=== PATIENT | male | born 1980 | race Caucasian/White ===

== ENCOUNTER 2018-08-16 16:24 | Emergency (ER) | payer SELFPAY ==
[2018-08-16] MEDS ORDERED: KETOROLAC TROMETHAMINE 60 MG/2 ML SDV IM ONE (16:45)
[2018-08-16] MEDS ORDERED: ONDANSETRON 4 MG TAB.RAPDIS PO ONE (16:45)
--- NOTE | 2018-08-16 16:46 | ER Document Report ---
ED Medical Screen (RME) - General Chief Complaint: Abdominal Pain Stated Complaint: RIGHT SIDE PAIN Time Seen by Provider: 08/16/18 16:42 Notes: 38-year-old male patient 2-day history of right upper quadrant abdominal pain made worse after eating. I have greeted and performed a rapid initial assessment of this patient. A comprehensive ED assessment and evaluation of the patient, analysis of test results and completion of the medical decision making process will be conducted by additional ED providers. TRAVEL OUTSIDE OF THE [place] IN LAST 30 DAYS: No - Related Data Allergies/Adverse Reactions: No Known Allergies Allergy (Verified 08/16/18 16:40) Past Medical History - Social History Chew tobacco use (# tins/day): No Frequency of alcohol use: None Drug Abuse: Marijuana Renal/ Medical History: Denies: Hx Peritoneal Dialysis Psychiatric Medical History: Reports: Hx Attention Deficit Hyperactivity Disorder Past Surgical History: Reports: Hx Tonsillectomy - adnoidectomy - Immunizations Hx Diphtheria, Pertussis, Tetanus Vaccination: Yes Physical Exam - Vital signs Vitals: Temp Pulse Resp BP Pulse Ox 97.7 F 91 16 143/82 H 97 08/16/18 16:28 08/16/18 16:28 08/16/18 16:28 08/16/18 16:28 08/16/18 16:28 Course - Vital Signs Vital signs: Temp Pulse Resp BP Pulse Ox 97.7 F 91 16 143/82 H 97 08/16/18 16:28 08/16/18 16:28 08/16/18 16:28 08/16/18 16:28 08/16/18 16:28
[2018-08-16 17:15] LABS: ABSOLUTE EOSINOPHILS # (AUTO) 0.1 10^3/uL (0.0-0.6); ABSOLUTE LYMPHOCYTES (AUTO) 1.1 10^3/uL (0.5-4.7); ABSOLUTE MONOCYTES (AUTO) 0.8 10^3/uL (0.1-1.4); ABSOLUTE NEUT (AUTO) 8.9 10^3/uL (1.7-8.2); BASOPHILS % (AUTO) 0.2 % (0-2); EOSINOPHILS % (AUTO) 0.9 % (0-6); HEMOGLOBIN 15.5 g/dL (13.5-17.0); LYMPHOCYTES % (AUTO) 9.7 % (13-45); MEAN CORPUSCULAR HEMOGLOBIN 30.1 pg (27.0-33.4); MEAN CORPUSCULAR HGB CONC 35.3 g/dL (32.0-36.0); MEAN CORPUSCULAR VOLUME 85 fl (80-97); MONOCYTES % (AUTO) 7.2 % (3-13); PLATELET COUNT 241 10^3/uL (150-450); RED BLOOD COUNT 5.16 10^6/uL (4.35-5.55); RED CELL DISTRIBUTION WIDTH 13.9 % (11.5-14.0); TOTAL CELLS COUNTED % (AUTO) 100 %; WHITE BLOOD COUNT 10.8 10^3/uL (4.0-10.5)
[2018-08-16 17:28] LABS: ALANINE AMINOTRANSFERASE 39 U/L (21-72); ALBUMIN 4.7 g/dL (3.5-5.0); ALKALINE PHOSPHATASE 76 U/L (38-126); ANION GAP 11 (5-19); ASPARTATE AMINO TRANSFERASE 26 U/L (17-59); BILIRUBIN,DIRECT 0.1 mg/dL (0.0-0.4); BILIRUBIN,TOTAL 0.5 mg/dL (0.2-1.3); BLOOD UREA NITROGEN 9 mg/dL (7-20); CALCIUM 10.2 mg/dL (8.4-10.2); CARBON DIOXIDE 27 mmol/L (22-30); CHLORIDE 102 mmol/L (98-107); GLUCOSE 117 mg/dL (75-110); LIPASE 85.8 U/L (23-300); POTASSIUM 3.6 mmol/L (3.6-5.0); SODIUM 140.1 mmol/L (137-145); TOTAL PROTEIN 7.2 g/dL (6.3-8.2)
[2018-08-16 17:30] LABS: APPEARANCE,URINE SLIGHTLY-CLOUDY; BILIRUBIN,URINE SMALL (NEGATIVE); COLOR,URINE AMBER; GLUCOSE, URINE NEGATIVE (NEGATIVE); KETONES,URINE TRACE mg/dL (NEGATIVE); LEUKOCYTE ESTERASE,URINE NEGATIVE (NEGATIVE); NITRITE,URINE NEGATIVE (NEGATIVE); PROTEIN,URINE 100 mg/dL (NEGATIVE); URINE SPECIFIC GRAVITY 1.046
--- NOTE | 2018-08-16 17:46 | RADIOLOGY REPORT (SQ) ---
EXAM DESCRIPTION: U/S ABDOMEN LIMITED W/O DOP COMPLETED DATE/TIME: 08/16/2018 5:27 pm REASON FOR STUDY: Postprandial RUQ abdominal pain w/ N V COMPARISON: None. TECHNIQUE: Dynamic and static grayscale images acquired of the abdomen and recorded on PACS. Additio nal selected color Doppler and spectral images recorded. LIMITATIONS: None. FINDINGS: PANCREAS: No masses. Visualized pancreatic duct normal caliber. LIVER: No masses. Echotexture normal. LIVER VASCULATURE: Normal directional flow of the main portal vein. GALLBLADDER: No stones. Normal wall thickness. No pericholecystic fluid. ULTRASOUND-DETECTED THEODORE'S SIGN: Negative. INTRAHEPATIC DUCTS AND COMMON DUCT: CBD and intrahepatic ducts normal caliber. No filling defects. INFERIOR VENA CAVA: Obscured AORTA: No aneurysm. RIGHT KIDNEY: Normal size. Normal echogenicity. No solid or suspicious masses. No hydronephrosis. No calcifications. PERITONEAL AND RIGHT PLEURAL SPACE: No ascites or effusions. OTHER: No other significant findings. IMPRESSION: NORMAL RIGHT UPPER QUADRANT ULTRASOUND. TECHNICAL DOCUMENTATION: JOB ID: [id number] [employer]- All Rights Reserved Reading location - IP/workstation name: [email or web address] [email or web address]
[2018-08-16] MEDS ORDERED: HYDROCODONE/ACETAMINOPHEN 5-325 MG TABLET PO ONE (17:55)
[2018-08-16] MEDS ORDERED: NORMAL SALINE 1000 ML 1,000 ML IV ONE (17:55)
[2018-08-16] MEDS ORDERED: ONDANSETRON HCL INJ/PF 4 MG/2 ML SDV IV ONE (17:55)
--- NOTE | 2018-08-16 18:31 | ER Document Report ---
ED General - General Mode of Arrival: Ambulatory Information source: Patient TRAVEL OUTSIDE OF THE [place] IN LAST 30 DAYS: No <LUZ WOLF - Last Filed: 08/16/18 23:05> <GERI JONES - Last Filed: 08/17/18 00:52> - General Chief Complaint: Abdominal Pain Stated Complaint: RIGHT SIDE PAIN Time Seen by Provider: 08/16/18 16:42 Notes: Patient is a 38 year old male presenting to the emergency department complaining of right upper quadrant abdominal pain and vomiting onset 3-4 days ago. Patient describes the pain as "terrible" and states he had similar symptoms 1 year ago but did not receive a work up. He states the pain is exacerbated by food further stating he ate a sandwich around 1400 today which exacerbated his pain. Patient also complains of some diaphoresis. He denies any hematemesis. (LUZ WOLF) - Related Data Allergies/Adverse Reactions: No Known Allergies Allergy (Verified 08/16/18 16:40) Past Medical History - General Information source: Patient - Social History Smoking Status: Current Every Day Smoker Chew tobacco use (# tins/day): No Frequency of alcohol use: None Drug Abuse: Marijuana Family History: CAD Patient has suicidal ideation: No Patient has homicidal ideation: No Psychiatric Medical History: Reports: Hx Attention Deficit Hyperactivity Disorder Past Surgical History: Reports: Hx Tonsillectomy - adnoidectomy - Immunizations Hx Diphtheria, Pertussis, Tetanus Vaccination: Yes <LUZ WOLF - Last Filed: 08/16/18 23:05> Review of Systems - Review of Systems Constitutional: No symptoms reported EENT: No symptoms reported Cardiovascular: No symptoms reported Respiratory: No symptoms reported Gastrointestinal: See HPI, Abdominal pain, Vomiting Genitourinary: No symptoms reported Male Genitourinary: No symptoms reported Musculoskeletal: No symptoms reported Skin: No symptoms reported Hematologic/Lymphatic: No symptoms reported Neurological/Psychological: No symptoms reported -: Yes All other systems reviewed and negative <LUZ WOLF - Last Filed: 08/16/18 23:05> Physical Exam <LUZ WOLF - Last Filed: 08/16/18 23:05> - Vital signs Vitals: Temp Pulse Resp BP Pulse Ox 97.7 F 91 16 143/82 H 97 08/16/18 16:28 08/16/18 16:28 08/16/18 16:28 08/16/18 16:28 08/16/18 16:28 - Notes Notes: GENERAL: Alert, interacts well. No acute distress. HEAD: Normocephalic, atraumatic. EYES: Pupils equal, round, and reactive to light. Extraocular movements intact. ENT: Oral mucosa moist, tongue midline. NECK: Full range of motion. Supple. Trachea midline. LUNGS: Clear to auscultation bilaterally, no wheezes, rales, or rhonchi. No respiratory distress. HEART: Regular rate and rhythm. No murmurs, gallops, or rubs. ABDOMEN: Soft, epigastric tenderness to palpation worse in the RUQ, positive Hill's sign. Non-distended. Bowel sounds present in all 4 quadrants. EXTREMITIES: Moves all 4 extremities spontaneously. NEUROLOGICAL: Alert and oriented x3. Normal speech. PSYCH: Normal affect, normal mood. SKIN: Warm, dry, normal turgor. No rashes or lesions noted. (LUZ WOLF) Course - Laboratory Result Diagrams: 08/16/18 16:55 08/16/18 16:55 <LUZ WOLF - Last Filed: 08/16/18 23:05> - Laboratory Result Diagrams: 08/16/18 16:55 08/16/18 16:55 <GERI JONES - Last Filed: 08/17/18 00:52> - Re-evaluation Re-evalutation: 08/16/18 20:41 CBC shows mild leukocytosis of 10.8, otherwise unremarkable, CMP grossly unremarkable, lipase normal, urinalysis shows trace ketones, no signs of in fection, no signs of blood. Abdominal ultrasound shows normal right upper quadrant ultrasound. Symptoms are highly suggestive of biliary colic and I suspect he has biliary dyskinesia. No indication for emergent cholecystectomy this evening, I did discuss the patient with Dr. Martin, the general surgeon on- call. He states that the patient may call their office Saturday morning to a range of follow-up appointment for outpatient cholecystectomy. Patient here was given antiemetics, pain medication, able to tolerate water and crackers without difficulty. Able to be discharged to home. Counseled extensively on gallbladder diet. (GERI JONES) - Vital Signs Vital signs: Temp Pulse Resp BP Pulse Ox 98.3 F 80 20 131/68 H 99 08/16/18 20:44 08/16/18 20:44 08/16/18 20:44 08/16/18 20:44 08/16/18 20:44 - Laboratory Laboratory results interpreted by me: 08/16/18 08/16/18 08/16/18 16:55 16:55 16:55 WBC 10.8 H Seg Neutrophils % 82.0 H Lymphocytes % 9.7 L Absolute Neutrophils 8.9 H Glucose 117 H Urine Protein 100 H Urine Ketones TRACE H Urine Bilirubin SMALL H Urine Urobilinogen 2.0 H Discharge <LUZ WOLF - Last Filed: 08/16/18 23:05> <GERI JONES - Last Filed: 08/17/18 00:52> - Discharge Clinical Impression: Biliary colic Condition: Stable Disposition: HOME, SELF-CARE Instructions: Gallbladder Disease ([facility]), Low-Fat Diet ([facility]) Additional Instructions: Please follow a low-fat diet. Please call Dr. Martin's office Saturday morning to arrange a follow-up appointment within the next 1-2 weeks for your chronic bi liary colic. Return to the emergency department for uncontrollable vomiting, uncontrollable pain, fevers or any new or concerning symptoms. Prescriptions: Hydrocodone/Acetaminophen [Hubert 5-325 mg Tablet] 1 tab PO Q6HP PRN #7 tablet PRN Reason: Ondansetron [Zofran Odt 4 mg Tablet] 1 - 2 tab PO Q4H PRN #15 tab.rapdis PRN Reason: For Nausea/Vomiting Promethazine HCl [Phenergan 25 mg Tablet] 1 - 2 tab PO Q6H PRN #15 tablet PRN Reason: Referrals: CHELE MARTIN MD [ACTIVE STAFF] - Follow up in 3-5 days Scribe Attestation: 08/17/18 00:52 I personally performed the services described in the documentation, reviewed and edited the documentation which was dictated to the scribe in my presence, and it accurately records my words and actions. (GERI JONES) Scribe Documentation - Scribe Written by Scribe:: Harrison Carlson, 08/16/2018 18:55 acting as scribe for :: Shawn <LUZ WOLF - Last Filed: 08/16/18 23:05>
[2018-08-16 20:46] VITALS: BP 131/68
== END 2018-08-16 20:59 | disposition home or self-care (01) ==
LOC: ER 16:24
DX: K83.8 Other specified diseases of biliary tract (principal); R10.11 Right upper quadrant pain; F17.200 Nicotine dependence, unspecified, uncomplicated
CPT/HCPCS: 99284; 96372; 96374; 36415; 83690; 85025; 80053; 81001; 76705; J1885; S0119; J2405; J7030

== ENCOUNTER 2018-08-18 18:07 | Observation (INO) | payer SELFPAY ==
[2018-08-18] MEDS ORDERED: KETOROLAC TROMETHAMINE INJ/PF 30 MG/1 ML SDV IV ONE (19:05)
--- NOTE | 2018-08-18 19:06 | ER Document Report ---
ED Medical Screen (RME) - General Chief Complaint: Abdominal Pain Stated Complaint: ABDOMINAL PAIN Time Seen by Provider: 08/18/18 18:48 Notes: Patient with severe right upper quadrant and epigastric abdominal pain made worse with anything he tries to eat. He was seen here 2 days ago for the same, had negative laboratory evaluation and a negative gallbladder ultrasound, was diagnosed with biliary colic. He has not been able to get timely follow-up with [facility]. He states the pain never goes away, and is preventing sleep. He states he cannot eat anything, even a few crackers provokes his discomfort. I have greeted and performed a rapid initial assessment of this patient. A comprehensive ED assessment and evaluation of the patient, analysis of test results and completion of the medical decision making process will be conducted by additional ED providers. TRAVEL OUTSIDE OF THE [place] IN LAST 30 DAYS: No - Related Data Allergies/Adverse Reactions: No Known Allergies Allergy (Verified 08/16/18 16:40) Past Medical History - Social History Chew tobacco use (# tins/day): No Frequency of alcohol use: None Drug Abuse: Marijuana Renal/ Medical History: Denies: Hx Peritoneal Dialysis Psychiatric Medical History: Reports: Hx Attention Deficit Hyperactivity Disorder Past Surgical History: Reports: Hx Tonsillectomy - adnoidectomy - Immunizations Hx Diphtheria, Pertussis, Tetanus Vaccination: Yes
[2018-08-18 19:47] LABS: ABSOLUTE BASOPHILS # (AUTO) 0.1 10^3/uL (0.0-0.2); ABSOLUTE EOSINOPHILS # (AUTO) 0.3 10^3/uL (0.0-0.6); ABSOLUTE LYMPHOCYTES (AUTO) 1.6 10^3/uL (0.5-4.7); ABSOLUTE MONOCYTES (AUTO) 0.7 10^3/uL (0.1-1.4); ABSOLUTE NEUT (AUTO) 4.4 10^3/uL (1.7-8.2); BASOPHILS % (AUTO) 0.9 % (0-2); HEMOGLOBIN 14.5 g/dL (13.5-17.0); LYMPHOCYTES % (AUTO) 22.5 % (13-45); MEAN CORPUSCULAR HEMOGLOBIN 29.5 pg (27.0-33.4); MEAN CORPUSCULAR HGB CONC 34.4 g/dL (32.0-36.0); MEAN CORPUSCULAR VOLUME 86 fl (80-97); MONOCYTES % (AUTO) 9.6 % (3-13); PLATELET COUNT 236 10^3/uL (150-450); RED CELL DISTRIBUTION WIDTH 13.8 % (11.5-14.0); TOTAL CELLS COUNTED % (AUTO) 100 %
[2018-08-18 20:01] LABS: ALANINE AMINOTRANSFERASE 36 U/L (21-72); ALBUMIN 4.5 g/dL (3.5-5.0); ALKALINE PHOSPHATASE 74 U/L (38-126); ANION GAP 9 (5-19); ASPARTATE AMINO TRANSFERASE 23 U/L (17-59); BILIRUBIN,DIRECT 0.3 mg/dL (0.0-0.4); BILIRUBIN,TOTAL 0.7 mg/dL (0.2-1.3); BLOOD UREA NITROGEN 12 mg/dL (7-20); CALCIUM 9.8 mg/dL (8.4-10.2); CARBON DIOXIDE 30 mmol/L (22-30); CHLORIDE 100 mmol/L (98-107); GLUCOSE 105 mg/dL (75-110); LIPASE 150.3 U/L (23-300); POTASSIUM 3.7 mmol/L (3.6-5.0); SODIUM 138.8 mmol/L (137-145); TOTAL PROTEIN 7.2 g/dL (6.3-8.2)
--- NOTE | 2018-08-18 21:46 | ER Document Report ---
ED General - General Chief Complaint: Abdominal Pain Stated Complaint: ABDOMINAL PAIN Time Seen by Provider: 08/18/18 18:48 Notes: Patient is a 38-year-old male without chronic medical problems who presents with 3 days of continuous pain to the right upper abdomen. The patient describes the pain as being a severe, constant, throbbing pain to the right upper side of his abdomen with associated nausea and vomiting. States that initially the pain was intermittent similar to when he was seen several days ago in the emergency department but has since become constant and intolerable. He notes that eating or drinking does not seem to have a major impact but he has avoided food secondary to the pain. Nothing improves the pain. Denies any history of similar pains prior to the past week. He has not had any fever or constitutional symptoms. No prior history of abdominal surgeries. TRAVEL OUTSIDE OF THE [place] IN LAST 30 DAYS: No - Related Data Allergies/Adverse Reactions: No Known Allergies Allergy (Verified 08/18/18 22:29) Past Medical History - General Information source: Patient - Social History Smoking Status: Current Every Day Smoker Chew tobacco use (# tins/day): No Frequency of alcohol use: None Drug Abuse: Marijuana Lives with: Family Family History: CAD Patient has suicidal ideation: No Patient has homicidal ideation: No Renal/ Medical History: Denies: Hx Peritoneal Dialysis Psychiatric Medical History: Reports: Hx Attention Deficit Hyperactivity Disorder Past Surgical History: Reports: Hx Tonsillectomy - adnoidectomy - Immunizations Hx Diphtheria, Pertussis, Tetanus Vaccination: Yes Review of Systems - Review of Systems Notes: Constitutional: Negative for fever. HENT: Negative for sore throat. Eyes: Negative for visual changes. Cardiovascular: Negative for chest pain. Respiratory: Negative for shortness of breath. Gastrointestinal: Positive for abdominal pain and vomiting Genitourinary: Negative for dysuria. Musculoskeletal: Negative for back pain. Skin: Negative for rash. Neurological: Negative for headaches, weakness or numbness. 10 point ROS negative except as marked above and in HPI. Physical Exam - Vital signs Vitals: Temp Pulse Resp BP Pulse Ox 98.4 F 73 16 122/63 99 08/18/18 18:35 08/18/18 18:35 08/18/18 18:35 08/18/18 18:35 08/18/18 18:35 Interpretation: Normal Notes: PHYSICAL EXAMINATION: GENERAL: Appears moderately uncomfortable but in no acute distress HEAD: Atraumatic, normocephalic. EYES: Pupils equal round and reactive to light, extraocular movements intact, sclera anicteric, conjunctiva are normal. ENT: nares patent, oropharynx clear without exudates. Moderately dry mucous membranes. NECK: Normal range of motion, supple without lymphadenopathy LUNGS: Breath sounds clear to auscultation bilaterally and equal. No wheezes rales or rhonchi. HEART: Regular rate and rhythm without murmurs ABDOMEN: Soft, notable right upper quadrant abdominal pain on exam without any other localized areas of tenderness. EXTREMITIES: Normal range of motion, no pitting or edema. No cyanosis. NEUROLOGICAL: No focal neurological deficits. Moves all extremities spontaneously and on command. PSYCH: Normal mood, normal affect. SKIN: Warm, Dry, normal turgor, no rashes or lesions noted. Course - Re-evaluation Re-evalutation: 08/18/18 21:46 Patient presents ongoing right upper quadrant abdominal pain that is been continuous for the past 3 days. Patient was seen 3 days ago, diagnosed with symptomatic cholelithiasis but reports that since that time the pain is no longer intermittent but is continuous whether or not he eats. Notes associated nausea and vomiting. Labs unremarkable. On abdominal exam he has focal tenderness the right upper quadrant but no other areas of localized tenderness, rebound or guarding. Vitals within normal limits. Repeat right upper quadrant ultrasound pending as there is obvious concern for possible acute cholecystitis picture. 08/19/18 01:28 CT of the abdomen pelvis was obtained as the initial ultrasound showed a dilated gallbladder but no other acute findings. Patient had persistent right upper quadrant abdominal tenderness and was worried about an alternative pathology. However CT abdomen pelvis does actually show an acute cholecystitis pattern without evidence of gallstones. I therefore contacted our surgeon on-call Dr. Nance who has accepted the patient for operative management in the morning. - Vital Signs Vital signs: Temp Pulse Resp BP Pulse Ox 97.5 F 64 14 114/74 99 08/19/18 03:07 08/18/18 23:07 08/19/18 03:02 08/19/18 03:02 08/19/18 03:02 - Laboratory Result Diagrams: 08/18/18 19:38 08/18/18 19:38 - Diagnostic Test Radiology reviewed: Reports reviewed Discharge - Discharge Clinical Impression: Acute acalculous cholecystitis Condition: Fair Disposition: ADMITTED OBSERVATION Admitting Provider: Surgicalist Unit Admitted: Surgical Floor
--- NOTE | 2018-08-18 22:59 | RADIOLOGY REPORT (SQ) ---
EXAM DESCRIPTION: US ABDOMEN LIMITED COMPLETED DATE/TME: 08/18/2018 20:34 CLINICAL HISTORY: 38 years, Male, ruq pain Findings: Pancreas is within normal limits. Aorta and IVC is within normal limits. Liver is within normal limits with no focal lesions. Portal vein is patent with hepatopedal flow. Gallbladder is mildly distended with no evidence for calculus, wall thickening or pericholecystic fluid. No sonographic Hill sign. No significant biliary dilatation with CBD measuring 4 mm. Right kidney measures 10.7 cm. No right hydronephrosis. No right upper quadrant ascites. IMPRESSION: No significant suspicious findings.
[2018-08-18] MEDS ORDERED: MORPHINE SULFATE 10 MG/ML INJ IV PRN (23:01)
[2018-08-18] MEDS ORDERED: NORMAL SALINE 1000 ML 1,000 ML IV ONE (23:01)
--- NOTE | 2018-08-19 00:53 | RADIOLOGY REPORT (SQ) ---
EXAM DESCRIPTION: CT ABDOMEN PELVIS WITH IV CONTRAST COMPLETED DATE/TME: 08/18/2018 23:01 CLINICAL HISTORY: 38 years Male, ongoing ruq abdominal pain, right flank pain Comparison: None. Technique: IV contrast. Coronal and sagittal reformat. This exam was performed according to our departmental dose-optimization program, which includes automated exposure control, adjustment of the mA and/or kV according to patient size and/or use of iterative reconstruction technique. [facility]: Dose Right [facility]: CareDose [facility]: Dose Right [facility]: Teradose 4D [facility]: [employer] LIMITATIONS: None Findings: Moderate cholecystitis pattern includes a 0.5 cm gallbladder wall thickening, moderate pericholecystic fluid, and moderate inflammation of the pericholecystic fat. No radiopaque gallstones. Splenomegaly index of 1057. No geovany ascites. No pneumoperitoneum. Normal appendix. No bowel obstruction. No hydronephrosis or hydroureter. No renal/ureteral stone. Inferior thorax, liver, pancreas, adrenals, renal system, gastrointestinal tract, pelvic organs, lymphatics, vasculature, and musculoskeleton appear otherwise unremarkable. IMPRESSION: 1. Moderate cholecystitis pattern. No radiopaque gallstones. 2. Moderate splenomegaly.
--- NOTE | 2018-08-19 01:31 | PDOC H&P ---
History of Present Illness Patient complains of: Abdominal pain History of Present Illness: HARISH WALSH is a 38 year old male who presents emergency department via ground rescue complaining of a 4-day history of abdominal pain right upper quadrant associated with anorexia. He denies history of trauma, previous epi sodes, association with persons with similar complaints. He was in the emergency department 48 hours ago complaining of similar symptoms. He has slightly elevated white blood cell count, ultrasound of the gallbladder reportedly unremarkable. Clinically he was felt to have cholecystitis and he was advised to follow-up with [facility] on an outpatient basis. Because of persisting symptoms, he came back to the emergency department earlier tonight where he was found to have persisting right upper quadrant tenderness. Lab work was unremarkable. Gallbladder ultrasonography revealed slightly dilated gallbladder. CT scan of the abdomen and pelvis with IV contrast only revealed thickened gallbladder wall with gallbladder distention, no stones, normal common bile duct. Patient was again felt to have cholecystitis acute and surgery was consulted he was advised admission. No family history of gallbladder disease Past Medical History Past Medical History: Attention deficit disorder Psychiatric Medical History: Reports: Attention Deficit Hyperactivity Disorder Past Surgical History Past Surgical History: Reports: Tonsillectomy - adnoidectomy Social History Smoking Status: Current Every Day Smoker Family History Family History: CAD Parental Family History Reviewed: Yes Children Family History Reviewed: Yes Sibling(s) Family History Reviewed.: Yes Medication/Allergy Home Medications: Hydrocodone/Acetaminophen [Worley 5-325 mg Tablet] 1 tab PO Q6HP PRN #7 tablet 08/16/18 Ondansetron [Zofran Odt 4 mg Tablet] 1 - 2 tab PO Q4H PRN #15 tab.rapdis 08/16/18 Promethazine HCl [Phenergan 25 mg Tablet] 1 - 2 tab PO Q6H PRN #15 tablet 08/16/18 Allergies/Adverse Reactions: No Known Allergies Allergy (Verified 08/18/18 22:29) Review of Systems Constitutional: PRESENT: as per HPI Eyes: ABSENT: visual disturbances Ears: ABSENT: hearing changes Cardiovascular: ABSENT: chest pain, dyspnea on exertion, edema, orthropnea, p alpitations Gastrointestinal: ABSENT: abdominal pain, constipation, diarrhea, hematemesis, hematochezia, nausea, vomiting Genitourinary: ABSENT: dysuria, hematuria Integumentary: ABSENT: rash, wounds Psychiatric: ABSENT: anxiety, depression, homidical ideation, suicidal ideation Endocrine: ABSENT: cold intolerance, heat intolerance, polydipsia, polyuria Physical Exam Vital Signs: Temp Pulse Resp BP Pulse Ox 98.4 F 64 17 125/71 96 08/18/18 23:07 08/18/18 23:07 08/18/18 23:07 08/18/18 23:07 08/18/18 23:07 Intake & Output 08/17/18 08/18/18 08/19/18 06:59 06:59 06:59 Intake Total 1000 Balance 1000 Weight 103.3 kg General appearance: PRESENT: no acute distress Head exam: PRESENT: atraumatic Eye exam: PRESENT: EOMI Ear exam: PRESENT: TM's normal bilaterally Mouth exam: PRESENT: dry mucosa Neck exam: PRESENT: full ROM Respiratory exam: PRESENT: clear to auscultation jose Cardiovascular exam: PRESENT: RRR Pulses: PRESENT: normal carotid pulses, normal femoral pulses Vascular exam: PRESENT: normal capillary refill GI/Abdominal exam: PRESENT: other - Soft, tender right upper quadrant with guarding; no abdominal wall hernias Rectal exam: PRESENT: deferred Extremities exam: PRESENT: full ROM Musculoskeletal exam: PRESENT: full ROM Neurological exam: PRESENT: awake, oriented to person, oriented to place Psychiatric exam: PRESENT: appropriate affect Results Laboratory Results: 08/18/18 19:38 08/18/18 19:38 08/18/18 08/18/18 19:38 19:38 WBC 7.0 RBC 4.90 Hgb 14.5 Hct 42.0 MCV 86 MCH 29.5 MCHC 34.4 RDW 13.8 Plt Count 236 Seg Neutrophils % 63.0 Lymphocytes % 22.5 Monocytes % 9.6 Eosinophils % 4.0 Basophils % 0.9 Absolute Neutrophils 4.4 Absolute Lymphocytes 1.6 Absolute Monocytes 0.7 Absolute Eosinophils 0.3 Absolute Basophils 0.1 Sodium 138.8 Potassium 3.7 Chloride 100 Carbon Dioxide 30 Anion Gap 9 BUN 12 Creatinine 0.93 Est GFR ( Amer) > 60 Est GFR (Non-Af Amer) > 60 Glucose 105 Calcium 9.8 Total Bilirubin 0.7 AST 23 ALT 36 Alkaline Phosphatase 74 Total Protein 7.2 Albumin 4.5 Lipase 150.3 Impressions: Abdomen Ultrasound 08/18/18 20:34 IMPRESSION: No significant suspicious findings. Abdomen/Pelvis CT 08/18/18 23:01 IMPRESSION: 1. Moderate cholecystitis pattern. No radiopaque gallstones. 2. Moderate splenomegaly. Assessment & Plan - Diagnosis (1) Cholecystitis without cholelithiasis Is this a current diagnosis for this admission?: Yes Plan: Impression: Acute cholecystitis without cholelithiasis based on clinical history physical exam and radiologic findings Commendations: 1. Admit, n.p.o., IV fluids, intravenous antibiotics. 2. Plan on interval laparoscopic possible open cholecystectomy, within the next 12 hours by the acute care surgicalist on-call (2) Smoker Is this a current diagnosis for this admission?: Yes (3) Biliary colic Is this a current diagnosis for this admission?: Yes - Time Time Spent: 50 to 70 Minutes Critical Time spent with patient: Less than 15 minutes Medications reviewed and adjusted accordingly: Yes Anticipated discharge: Home - Inpatient Certification Based on my medical assessment, after consideration of the patient's comorbidities, presenting symptoms, or acuity I expect that the services needed warrant INPATIENT care.: Yes I certify that my determination is in accordance with my understanding of Medicare's requirements for reasonable and necessary INPATIENT services [42 CFR 412.3e].: Yes Medical Necessity: Need For IV Fluids, Need for Pain Control, Need for IV Antibiotics, Need for Surgery
[2018-08-19] MEDS ORDERED: KETOROLAC TROMETHAMINE 10 MG TABLET PO PRN (01:33)
[2018-08-19] MEDS: CEFAZOLIN 1 GM/D5W RTU 1 GM/50 ML RTUPB IV SCH ×3 (03:00→18:13)
[2018-08-19] MEDS: RINGERS SOLUTION,LACTATED 1,000 ML IV PRN ×2 (03:02→06:20)
[2018-08-19] MEDS: ACETAMINOPHEN INJ/PF 1000 MG/100 ML SDV IV SCH ×4 (06:16→23:30)
--- NOTE | 2018-08-19 07:41 | PDOC PROGRESS REPORT ---
Subjective Progress Note for:: 08/19/18 Reason For Visit: ACUTE CHOLECYSTITIS Physical Exam Vital Signs: Temp Pulse Resp BP Pulse Ox 98.1 F 70 18 119/74 100 08/19/18 05:20 08/19/18 05:39 08/19/18 05:20 08/19/18 05:20 08/19/18 05:20 Intake & Output 08/18/18 08/19/18 08/20/18 06:59 06:59 06:59 Intake Total 1710 Balance 1710 Weight 103.3 kg GI/Abdominal exam: PRESENT: Hill's sign - pt remains tender in rt upper quaderent Results Laboratory Results: 08/18/18 19:38 08/18/18 19:38 08/18/18 08/18/18 19:38 19:38 WBC 7.0 RBC 4.90 Hgb 14.5 Hct 42.0 MCV 86 MCH 29.5 MCHC 34.4 RDW 13.8 Plt Count 236 Seg Neutrophils % 63.0 Lymphocytes % 22.5 Monocytes % 9.6 Eosinophils % 4.0 Basophils % 0.9 Absolute Neutrophils 4.4 Absolute Lymphocytes 1.6 Absolute Monocytes 0.7 Absolute Eosinophils 0.3 Absolute Basophils 0.1 Sodium 138.8 Potassium 3.7 Chloride 100 Carbon Dioxide 30 Anion Gap 9 BUN 12 Creatinine 0.93 Est GFR ( Amer) > 60 Est GFR (Non-Af Amer) > 60 Glucose 105 Calcium 9.8 Total Bilirubin 0.7 AST 23 ALT 36 Alkaline Phosphatase 74 Total Protein 7.2 Albumin 4.5 Lipase 150.3 Impressions: Abdomen Ultrasound 08/18/18 20:34 IMPRESSION: No significant suspicious findings. Abdomen/Pelvis CT 08/18/18 23:01 IMPRESSION: 1. Moderate cholecystitis pattern. No radiopaque gallstones. 2. Moderate splenomegaly. Assessment & Plan - Diagnosis (1) Cholecystitis without cholelithiasis Is this a current diagnosis for this admission?: Yes - Inpatient Certification I certify that my determination is in accordance with my understanding of Medicare's requirements for reasonable and necessary INPATIENT services [42 CFR 412.3e].: Yes Medical Necessity: Failure to Improve With Outpatient Therapy, Need for Pain Control, Need for IV Antibiotics, Need for Surgery - Plan Summary Plan Summary: I have discussed risks and benifits with pt regarding cholecystectomy we discussed injury to adjacent organs including bile ducts hepatic vessels, bowel. he understands he may need an open procedure risks of bleeding infection, common ducts stones and need for post op ercp have been discussed wound issues including hernia, infection need for additional surgery has been discussed. pt agrees to proceed.
[2018-08-19] MEDS ORDERED: IPRATROPIUM/ALBUTEROL 0.5-2.5 MG/3 ML AMPUL NEB ONE (13:00)
[2018-08-19] MEDS ORDERED: MIDAZOLAM 2 MG/2 ML INJ ONE (14:06)
[2018-08-19] MEDS ORDERED: HYDROMORPHONE HCL INJ/PF 2 MG/ML AMPULE ONE (14:06)
[2018-08-19] MEDS ORDERED: BUPIVACAINE HCL 0.5%-EPI 1:200000 INJ/PF 30 ML VIAL ONE (14:06)
[2018-08-19] MEDS ORDERED: FENTANYL CITRATE INJ/PF 100 MCG/2 ML AMPUL ONE (14:06)
[2018-08-19] MEDS ORDERED: ACETAMINOPHEN 1,000 MG/100 ML RTUPB IV ONE (14:08)
[2018-08-19] MEDS ORDERED: PROPOFOL INJ 200 MG/20 ML VIAL IV ONE (14:08)
[2018-08-19] MEDS ORDERED: MORPHINE SULFATE 10 MG/ML INJ IV PRN ×2 (14:50→16:48)
[2018-08-19] MEDS ORDERED: DIPHENHYDRAMINE HCL 50 MG/ML VIAL IV PRN (14:50)
[2018-08-19] MEDS ORDERED: MEPERIDINE HCL/PF INJ 25 MG/1 ML DISP.SYRIN IV PRN (14:50)
[2018-08-19] MEDS ORDERED: FENTANYL CITRATE INJ/PF 100 MCG/2 ML AMPUL IV PRN ×3 (14:50)
[2018-08-19] MEDS ORDERED: PROMETHAZINE HCL INJ 25 MG/1 ML VIAL IV PRN (14:50)
--- NOTE | 2018-08-19 16:42 | Operative Report ---
Operative Report DATE OF SURGERY: 08/19/18 PREOPERATIVE DIAGNOSIS: cholecystitis POSTOPERATIVE DIAGNOSIS: cholecystitis OPERATION: laparoscopic cholecystectomy SURGEON: DINA BARRIOS ANESTHESIA: GA TISSUE REMOVED OR ALTERED: gallbladder COMPLICATIONS: none ESTIMATED BLOOD LOSS: 75cc INTRAOPERATIVE FINDINGS: chronically thickened inflammed gallbladder PROCEDURE: see dictation
[2018-08-19] MEDS: METRONIDAZOLE 500 MG/NS RTU 500 MG/100 ML RTUPB IV SCH ×2 (20:16→23:31)
[2018-08-19] MEDS ORDERED: CEFAZOLIN SODIUM 1 GM in DEXTROSE 5%-WATER 50 ML IV SCH (22:00)
--- NOTE | 2018-08-19 23:42 | OPERATIVE REPORT E ---
Operative Report NAME: HARISH WALSH : 1980 AGE: 38Y DATE OF SURGERY: 08/19/2018 ROOM: 208 PREOPERATIVE DIAGNOSIS: ACUTE CHOLECYSTITIS. POSTOPERATIVE DIAGNOSIS: ACUTE CHOLECYSTITIS. OPERATIVE PROCEDURE: Laparoscopic cholecystectomy. SURGEON: DINA ABRRIOS M.D. PROCEDURE IN DETAIL: The patient was brought to the operating room awake and alert in stable condition, placed on the operating table in supine position, induced under general anesthesia, intubated. The abdomen was prepped and draped in the usual sterile manner for the procedure. A Veress needle was placed into the umbilicus and the abdomen was insufflated with 6 L of CO2 gas. An infraumbilical 10 mm incision was made with a 12 blade and 10 mm port placed into the abdominal cavity. Intraabdominal visualization revealed no evidence of a Veress needle or trocar injury. Epigastric 5 mm port was placed under direct vision and 2 lateral 5 mm ports under direct vision. The gallbladder was identified and was markedly inflamed and chronically inflamed to the point were the duodenum and omentum were adhered tightly to the fundus and body of the gallbladder. It took a moderate amount of dissection using blunt dissection, sharp dissection, and Bovie cautery to mobilize the duodenum away from the wall of the gallbladder. Once this was done we then decompressed the gallbladder with a sterile needle. It should be noted that the duodenum was checked extensively for any injury to the duodenal wall and there was none identified. 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 In fact, the keyur hepatis was also markedly inflamed. We began placing the gallbladder in traction and with deliberate slow dissection we were able to peel the very thick capsule away from the gallbladder neck and mobilize the gallbladder up into the black were I eventually felt, I identified the cystic duct. We also identified the cystic artery and that was easily identified and it was doubly ligated with an Endoclip divided. Once dissecting around the neck of the gallbladder around the cystic duct we came around it, but I was never quite clear whether the cystic duct was really that obstruction in fact or the common bile duct. I, therefore, elected to perform a retrograde dissection of the gallbladder down from the bed of the liver and we began that with Bovie cautery. Again, it was markedly thickened and inflamed. The capsule was quite thickened and we dissected the fundus of the gallbladder away from the bed of the liver with Bovie cautery and began our dissection from cephalad down to the keyur hepatis. This was done with sharp and blunt dissection using peanut dissectors and Bovie cautery. Once we were able to *------* mobilize the gallbladder we reached the neck of it and identified the fact that the cystic duct was directly coming off the neck of the gallbladder and not in any way involving the common bile duct. I doubly ligated the cystic duct and divided it and removed the gallbladder. We irrigated the abdominal cavity and the right upper quadrant copiously with normal saline. Hemostasis of the gallbladder bed was obtained with Bovie cautery. Because of the exquisite inflammation of the gallbladder I elected to leave the drain in the keyur hepatis and used a 15 Amari-Pedroza drain, brought it out through the step to the right lower quadrant port site. After obtaining good hemostasis, we reduced the pneumoperitoneum, we closed the 10 mm port site at the umbilical location with 0 Vicryl and the fascia and then closed all skin incisions with intracuticular 4-0 Vicryl and Steri-Strips. We completed the procedure. Estimated blood loss was 75 mL. Sponge and needle counts were correct x2. The patient was awakened in the operating room, extubated, and transferred to recovery in stable condition, no complications. DICTATING PHYSICIAN: DINA BARRIOS M.D. [id number] Y#: [id number] ID: [id number] JOB#: [id number] ACCT: [id number] cc:DINA BARRIOS M.D. >
[2018-08-20] MEDS: CEFAZOLIN 1 GM/D5W RTU 1 GM/50 ML RTUPB IV SCH ×3 (02:12→18:31)
[2018-08-20] MEDS ORDERED: ACETAMINOPHEN 1,000 MG/100 ML RTUPB IV ONE (05:07)
[2018-08-20] MEDS: METRONIDAZOLE 500 MG/NS RTU 500 MG/100 ML RTUPB IV SCH ×4 (05:45→23:34)
[2018-08-20] MEDS: ACETAMINOPHEN INJ/PF 1000 MG/100 ML SDV IV SCH ×4 (06:58→23:34)
[2018-08-20] MEDS ORDERED: ROCURONIUM BROMIDE INJ 50 MG/5 ML VIAL IV ONE (12:46)
[2018-08-20] MEDS ORDERED: LIDOCAINE 2% INJ-PF (20 MG/ML) 2 ML AMPUL ONE (12:46)
[2018-08-20] MEDS ORDERED: DEXAMETHASONE SOD PHOSPHATE INJ 4 MG/1 ML VIAL ONE (12:46)
[2018-08-20] MEDS ORDERED: ONDANSETRON HCL INJ/PF 4 MG/2 ML SDV ONE (12:46)
[2018-08-20] MEDS ORDERED: SUCCINYLCHOLINE CHLORIDE INJ 200 MG/10 ML VIAL ONE (12:46)
[2018-08-20] MEDS ORDERED: NEOSTIGMINE METHYLSULFATE 10 MG/10 ML VIAL ONE (12:46)
[2018-08-20] MEDS ORDERED: GLYCOPYRROLATE 1 MG/5 ML SYRINGE ONE (12:46)
[2018-08-20] MEDS: RINGERS SOLUTION,LACTATED 1,000 ML IV PRN (15:20)
[2018-08-20] MEDS ORDERED: RINGERS SOLUTION,LACTATED 1,000 ML IV PRN (16:10)
--- NOTE | 2018-08-20 16:28 | PDOC PROGRESS REPORT ---
Subjective Progress Note for:: 08/20/18 Subjective:: no c/o, feels hungry Reason For Visit: ACUTE CHOLECYSTITIS Physical Exam Vital Signs: Temp Pulse Resp BP Pulse Ox 98.0 F 80 16 127/64 H 97 08/20/18 15:21 08/20/18 15:21 08/20/18 15:21 08/20/18 15:21 08/20/18 15:21 Intake & Output 08/19/18 08/20/18 08/21/18 06:59 06:59 06:59 Intake Total 1710 5270 1230 Output Total 1280 30 Balance 1710 3990 1200 Weight 103.3 kg 103 kg General appearance: PRESENT: no acute distress Respiratory exam: PRESENT: clear to auscultation jose Cardiovascular exam: PRESENT: RRR GI/Abdominal exam: PRESENT: diminished bowel sounds, soft, other - active bloody drainage from drain site and umbilical incision; LAURYN drain with serosanguinous fluid Results Laboratory Results: 08/18/18 19:38 08/18/18 19:38 Impressions: Abdomen Ultrasound 08/18/18 20:34 IMPRESSION: No significant suspicious findings. Abdomen/Pelvis CT 08/18/18 23:01 IMPRESSION: 1. Moderate cholecystitis pattern. No radiopaque gallstones. 2. Moderate splenomegaly. Assessment & Plan - Diagnosis (1) Cholecystitis without cholelithiasis Is this a current diagnosis for this admission?: Yes - Plan Summary Plan Summary: A/ POD#1 after cholecystectomy for acute cholecystitis without cholelithiasis VSS, AF actively oozing of blood from LAURYN site and umbilical wound Approximately 70 mL serosanguinous drainage from LAURYN drain Abdomen soft P/ In light of above findings, diet will be advanced to clear liquid diet tonight Continue IVF and IV abx Hold off on DVT pharmacological prophylaxis Will recheck blood work in AM: if no significant drop of H/H and CMP is WNL, patient can be discharged to home
[2018-08-20] MEDS ORDERED: ACETAMINOPHEN 1,000 MG/100 ML RTUPB IV SCH (18:00)
[2018-08-20 23:05] LABS: HEMATOCRIT 35.1 % (37.9-51.0); MEAN CORPUSCULAR HEMOGLOBIN 29.7 pg (27.0-33.4); MEAN CORPUSCULAR HGB CONC 34.9 g/dL (32.0-36.0); MEAN CORPUSCULAR VOLUME 85 fl (80-97); PLATELET COUNT 212 10^3/uL (150-450); RED BLOOD COUNT 4.13 10^6/uL (4.35-5.55); RED CELL DISTRIBUTION WIDTH 13.6 % (11.5-14.0); WHITE BLOOD COUNT 5.9 10^3/uL (4.0-10.5)
[2018-08-20 23:08] LABS: HEMOGLOBIN 12.2 g/dL (13.5-17.0)
[2018-08-21] MEDS: CEFAZOLIN 1 GM/D5W RTU 1 GM/50 ML RTUPB IV SCH (01:17)
[2018-08-21] MEDS: METRONIDAZOLE 500 MG/NS RTU 500 MG/100 ML RTUPB IV SCH (06:17)
[2018-08-21 06:52] LABS: ABSOLUTE EOSINOPHILS # (AUTO) 0.1 10^3/uL (0.0-0.6); ABSOLUTE LYMPHOCYTES (AUTO) 1.2 10^3/uL (0.5-4.7); ABSOLUTE MONOCYTES (AUTO) 0.6 10^3/uL (0.1-1.4); ABSOLUTE NEUT (AUTO) 4.4 10^3/uL (1.7-8.2); BASOPHILS % (AUTO) 0.5 % (0-2); EOSINOPHILS % (AUTO) 1.4 % (0-6); HEMATOCRIT 35.4 % (37.9-51.0); HEMOGLOBIN 12.2 g/dL (13.5-17.0); LYMPHOCYTES % (AUTO) 19.3 % (13-45); MEAN CORPUSCULAR HEMOGLOBIN 29.5 pg (27.0-33.4); MEAN CORPUSCULAR HGB CONC 34.5 g/dL (32.0-36.0); MEAN CORPUSCULAR VOLUME 85 fl (80-97); MONOCYTES % (AUTO) 9.2 % (3-13); PLATELET COUNT 222 10^3/uL (150-450); RED BLOOD COUNT 4.15 10^6/uL (4.35-5.55); RED CELL DISTRIBUTION WIDTH 13.5 % (11.5-14.0); SEGMENTED NEUTROPHILS % (AUTO) 69.6 % (42-78); TOTAL CELLS COUNTED % (AUTO) 100 %; WHITE BLOOD COUNT 6.3 10^3/uL (4.0-10.5)
[2018-08-21 07:13] LABS: ALANINE AMINOTRANSFERASE 43 U/L (21-72); ALBUMIN 3.5 g/dL (3.5-5.0); ALKALINE PHOSPHATASE 72 U/L (38-126); ANION GAP 6 (5-19); ASPARTATE AMINO TRANSFERASE 32 U/L (17-59); BILIRUBIN,DIRECT 0.1 mg/dL (0.0-0.4); BILIRUBIN,TOTAL 0.3 mg/dL (0.2-1.3); BLOOD UREA NITROGEN 7 mg/dL (7-20); CALCIUM 9.1 mg/dL (8.4-10.2); CARBON DIOXIDE 27 mmol/L (22-30); CHLORIDE 106 mmol/L (98-107); GLUCOSE 97 mg/dL (75-110); POTASSIUM 4.2 mmol/L (3.6-5.0); SODIUM 139.3 mmol/L (137-145); TOTAL PROTEIN 5.8 g/dL (6.3-8.2)
--- NOTE | 2018-08-21 07:57 | PDOC PROGRESS REPORT ---
Subjective Progress Note for:: 08/21/18 Subjective:: no c/o Reason For Visit: ACUTE CHOLECYSTITIS Physical Exam Vital Signs: Temp Pulse Resp BP Pulse Ox 98.5 F 78 18 131/73 H 97 08/21/18 03:26 08/21/18 03:26 08/21/18 03:26 08/21/18 03:26 08/21/18 03:26 Intake & Output 08/20/18 08/21/18 08/22/18 06:59 06:59 06:59 Intake Total 5270 1630 Output Total 1280 30 Balance 3990 1600 Weight 103 kg General appearance: PRESENT: no acute distress GI/Abdominal exam: PRESENT: soft, other - LAURYN drain filled woith serosanguinous fluid; dressings C/D/I Results Laboratory Results: 08/21/18 06:36 08/21/18 06:36 08/20/18 08/21/18 08/21/18 22:45 06:36 06:36 WBC 5.9 6.3 RBC 4.13 L 4.15 L Hgb 12.2 L D 12.2 L Hct 35.1 L 35.4 L MCV 85 85 MCH 29.7 29.5 MCHC 34.9 34.5 RDW 13.6 13.5 Plt Count 212 222 Seg Neutrophils % 69.6 Lymphocytes % 19.3 Monocytes % 9.2 Eosinophils % 1.4 Basophils % 0.5 Absolute Neutrophils 4.4 Absolute Lymphocytes 1.2 Absolute Monocytes 0.6 Absolute Eosinophils 0.1 Absolute Basophils 0.0 Sodium 139.3 Potassium 4.2 Chloride 106 Carbon Dioxide 27 Anion Gap 6 BUN 7 Creatinine 0.84 Est GFR ( Amer) > 60 Est GFR (Non-Af Amer) > 60 Glucose 97 Calcium 9.1 Total Bilirubin 0.3 AST 32 ALT 43 Alkaline Phosphatase 72 Total Protein 5.8 L Albumin 3.5 Impressions: Abdomen Ultrasound 08/18/18 20:34 IMPRESSION: No significant suspicious findings. Abdomen/Pelvis CT 08/18/18 23:01 IMPRESSION: 1. Moderate cholecystitis pattern. No radiopaque gallstones. 2. Moderate splenomegaly. Assessment & Plan - Diagnosis (1) Cholecystitis without cholelithiasis Is this a current diagnosis for this admission?: Yes - Plan Summary Plan Summary: A/ POD#2 after lap hazel for acute cholecystitis WBC normal H/H unchanged since yesterday LAURYN abdominal wound not draining thismorning LAURYN output 160 mL past 24 hr P/ Home today sponge bath only until drain is in place then can shower Bath allowed 2 weeks after surgery and after the drain is removed empty LAURYN drain daily, record amount bring record to office visit call office if output is less than 30 mL x 2 consecutive days Follow up in the Surgery office with Dr. Waddell in 2 weeks Tylenol/Aleve for pain Activities as tolerated Keep dressings clean, dry, intact regular diet
[2018-08-21 08:46] VITALS: BP 120/68
--- NOTE | 2018-08-21 12:47 | DISCHARGE SUMMARY E ---
Discharge Summary NAME: HARISH WALSH : 1980 AGE: 38Y ADMITTED: 08/19/2018 DISCHARGED: 08/21/2018 FINAL DIAGNOSIS: Acalculous acute cholecystitis. PROCEDURE: On August 19 the patient underwent a laparoscopic cholecystectomy by Dr. Ayala. The procedure was uneventful. A Amari-Pedroza drain was left in the gallbladder fossa. HOSPITAL COURSE: Postoperatively the patient did well. However, there was a fair amount of serosanguineous oozing from around the drain site with heavy soaking of the dressings; therefore, the patient was kept in the hospital on postop day #1. He was discharged home on postop day #2, August 21, when his dressings were clean, dry, and intact. His vital signs were stable. His blood work remained within normal limits with normal white blood cell count and hemoglobin and hematocrit were stable from the admission. His physical exam was unremarkable. The patient was able to tolerate a regular diet. DISCHARGE ORDERS: The patient will be discharged to home on August 21. He was given a follow-up appointment in the Surgery Clinic with Dr. Ayala in 2 weeks. He was instructed to have a sponge bath only, shower allowed after the drain is removed, and bath is allowed 2 weeks after the surgery and after removal of the drain. The patient was instructed to keep the dressing clean, dry, and intact, to empty the Amari-Pedroza drain daily and record the amount, and to bring a record of the output of the drain to the office clinic. The patient was instructed to call the office if the output of the drain is less than 30 mL for 2 days in a row for early removal. The patient was given a regular diet and activity as tolerated. Tylenol and Aleve for pain. The patient can return to work when he is able to resume his usual activities. DICTATING PHYSICIAN: JANIS DING M.D. [id number] PHY#: [id number] ID: [id number] JOB#: [id number] ACCT: [id number] cc:Sarah LARA MD, M.D. MARSHALL B. FRINK, M.D. > MTDD
== END 2018-08-21 10:20 | disposition home or self-care (01) ==
LOC: ER 18:07 → EH 08-19 01:37 → 2N 08-19 05:20
PROVIDERS: ATTEND Surgery
PROC: 0FT44ZZ Resection of Gallbladder, Percutaneous Endoscopic Approach (ICD-10-PCS; principal; 2018-08-19 13:30)
DX: K80.10 Calculus of gallbladder with chronic cholecystitis without obstruction (principal); F17.200 Nicotine dependence, unspecified, uncomplicated; F12.10 Cannabis abuse, uncomplicated
CPT/HCPCS: 99285; 96361; 96374; 96375; 36415 ×3; 83690; 85025 ×2; 85027; 80053 ×2; 88304 ×2; 76705; 74177; 47562; J2250; J3490 ×4; J0690 ×3; J1100; J3010; J1885; J2270; J1170; J0330; J2405; J7030; J7120 ×3; J2704; J7620; J0131 ×2; 790